=== PATIENT | female | born 1940 | race Caucasian/White ===

== ENCOUNTER 2018-08-27 08:27 | Observation (INO) ==
[2018-08-27] MEDS ORDERED: ceFAZolin 1 GM Premix Inj 1 GM/50 ML PIGGYBACK IV.SIG SCH (09:15)
[2018-08-27] MEDS ORDERED: Chlorhexidine Gluconate 2% 1 Pack (2 Cloths) TOPICAL ONE (09:15)
[2018-08-27] MEDS ORDERED: Metoprolol Tartrate 25 MG Tablet PO ONE (09:15)
[2018-08-27] MEDS ORDERED: Heparin - SQ 10,000 UNITS/ML Vial SQ SCH (09:15)
[2018-08-27] MEDS ORDERED: Sodium Chlor 0.9% Inj 500 ML IV.SIG SCH (10:00)
[2018-08-27] MEDS ORDERED: Scopalamine 1.5 MG Patch T-DERMAL ONE (11:00)
[2018-08-27] MEDS ORDERED: Sugammadex Inj 200 MG/2 ML Vial IV.PUSH ONE (11:49)
[2018-08-27] MEDS ORDERED: Famotidine PF Inj 20 MG/2 ML Vial ONE (11:49)
[2018-08-27] MEDS ORDERED: Lidocaine 1%/Epinephrine 1:100,000 Inj 30 ML Vial ONE (12:03)
[2018-08-27] MEDS ORDERED: Methylene Blue Inj 100 MG/10 ML Vial OTHER ONE (15:39)
[2018-08-27] MEDS ORDERED: LORazepam 0.5 MG Tablet PO PRN (16:45)
[2018-08-27] MEDS ORDERED: KCL 20 mEq/D5W/NaCl 0.45% Inj 1,000 ML IV.CONT SCH (16:45)
[2018-08-27] MEDS ORDERED: KCL 20 mEq/D5W/NaCl 0.45% Inj 1,000 ML ONE (17:02)
[2018-08-27] MEDS ORDERED: fentaNYL Citrate Inj 100 MCG/2 ML Ampul ONE (17:11)
[2018-08-27] MEDS ORDERED: *morphine SULFATE 4 MG/ML PERIprocedure ONLY ONE (17:31)
[2018-08-27] MEDS: Ketorolac Inj 30 MG/ML (IVP) Vial IV.PUSH SCH ×2 (17:33→23:53)
[2018-08-27] MEDS: KCL 20 mEq/D5W/NaCl 0.45% Inj 1,000 ML IV.CONT SCH (17:33)
--- NOTE | 2018-08-27 20:19 | MP ---
cc: Dunia Montoya MD, Heather MD Riga,Tyrone DICKERSON DATE OF OPERATION: 08/27/2018 PREOPERATIVE DIAGNOSES: 1. Complex pelvic mass (or masses). 2. Pain with suspicion of possible ovarian torsion. POSTOPERATIVE DIAGNOSES: 1. Bilateral complex adnexal masses. 2. Right ovarian torsion with necrosis. 3. Extensive intra-abdominal, intraperitoneal and pelvic adhesions. PROCEDURE PERFORMED: 1. Laparoscopy with extensive lysis of adhesions. 2. Robotic-assisted laparoscopic hysterectomy with bilateral salpingo-oophorectomy (with resection of bilateral ovarian masses). 3. Lysis of adhesions. SURGEON: Dunia Montoya MD NEEDLE CONTROL CHENILLER: Cleo trust administrative assistant. ANESTHESIA: General endotracheal anesthesia. ESTIMATED BLOOD LOSS: 100 mL. INTRAVENOUS FLUIDS: 1700 mL. URINE OUTPUT: 150 mL. HISTORY: A 78-year-old female who presented to the emergency room in [place] last week with the fairly acute onset of abdominopelvic pain and found on exam and imaging to have a large complex pelvic mass or the possibility of bilateral masses thought to be involving the ovaries. She was given pain medication. She had symptomatic improvement and was referred to us. She we saw her in our office 2 days ago where the findings were reviewed. At that time, she was uncomfortable, but not acute and felt improved compared to when she was in the emergency room, although she had been taking pain medication that may have been suppressing her symptoms. We reviewed the findings and the recommendation for surgery. She was in favor of a hysterectomy irrespective of the pathology of the ovaries or other findings. She was seen again in the preop holding area with her where the findings and plan of care were again discussed and reviewed. She expressed good understanding and agreed to move forward with surgery. FINDINGS: Upon laparoscopic entry into the peritoneal cavity, the omentum was densely adherent to the anterior abdominal wall, as was the transverse colon. The omentum was stuck to the abdominal wall down toward the pelvis as well. The etiology of the adhesions is unclear. In the pelvis, the left ovary was enlarged to approximately 6-7 cm, multilobulate and complex. The right ovary was estimated to be more like maybe 10-11 cm. It was clearly torsed. There was 180-degree torsion visible on the gonadal vessels. There was venous blood trapped in the mass. It was dark and appeared partially necrotic. It had some adhesions to the posterior cul-de-sac. The uterus itself appeared normal. The peritoneal surfaces appeared normal, other than extensive adhesions. The liver and diaphragm edges were smooth. The large and small bowel and adjacent mesentery were normal without obvious implants. There was no significant adenopathy. 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 The uterus grossly appeared normal. The right ovary showed no obvious malignancy. It was difficult to read due to the necrosis and inflammation. There were some atypical cells, raising the possibility of a borderline ovarian tumor. It is also possible that this impression is being derived from the necrosis and inflammation. STATEMENT OF COMPLEXITY/MODIFIER: It is estimated that an additional 1 hour of surgical time was required to lyse adhesions laparoscopically to gain safe entry into the peritoneal cavity and restore normal anatomy as well as lysing adhesions, mobilizing the colon and freeing the right ovary from the cul-de-sac to restore normal anatomy and to accomplish surgical objectives. Modifier should be applied accordingly. DESCRIPTION OF PROCEDURE: She was taken to the operating room and placed in dorsal lithotomy position. After general endotracheal anesthesia was administered, a timeout was undertaken. She was identified by sight recognition and hospital ID bracelet and the proposed procedure was reviewed and confirmed. She was carefully positioned in padded Lucas stirrups and her arms were padded and secured to the sides. She was further secured to the operating table with egg crate padding and tape in a cross chest over the shoulder fashion. All sites were noted to be properly aligned with no malalignment or pressure points. She was prepped in sterile fashion, draped below the waist and placed in lithotomy position. The cervix was grasped, the uterine cavity sounded, cervix dilated and a standard VCare manipulator was inserted and secured in usual fashion. A Bowling catheter was placed in the bladder. She was returned to low lithotomy position. A change of sterile gloves undertaken. We completed draping in anticipation of laparoscopy and confirmed that an orogastric tube was in the stomach on suction. For manual elevation of the abdominal wall, a 5 mm cannula was introduced into the left upper quadrant. Carbon dioxide gas was insufflated and visualization revealed extensive adhesions. A safe window of entry in the left lateral abdomen was noted and an 8 mm cannula was introduced. Using these accessory ports, a camera and blunt dissection were used to take down adhesions, followed by sharp dissection and focal cautery in a stepwise fashion until all of the adhesions from the omentum and the transverse colon were taken down from the anterior abdominal wall. Small bleeders were rendered hemostatic with bipolar cautery. A 12 mm cannula was placed in the midline above the umbilicus, 8 mm cannula placed in the right upper quadrant and the original 5 mm exchanged for an 8 mm cannula. She was placed in Trendelenburg position. Peritoneal washings were obtained for cytology. The anatomy was explored with findings as described above. The small bowel was folded back on its mesenteric root and 3 Ray-Елена sponges were placed around the root of the small bowel mesentery. The robotic system was brought into the operative field and attached in the usual fashion. Monopolar scissors, fenestrated bipolar forceps and ProGrasp manipulators were placed in arms #1, 2 and 3 respectively and I took my place at the surgeon's console. The right round ligament was isolated, cauterized, transected. The anterior and posterior leaves of the broad ligament were opened. The right ureter was identified. The right infundibulopelvic ligament was isolated to the level of the pelvic brim. The intervening peritoneum was opened and the infundibulopelvic ligament was cauterized thoroughly and transected. The right utero-ovarian ligament was isolated with sharp dissection and cautery and the posterior peritoneum opened along the right side of the uterus and cervix. The right uterine vessels were skeletonized and the right vesicouterine peritoneum was taken down off the lower uterine segment and cervix. Adhesions from the right ovarian mass were taken down from the cul-de-sac and sidewall so that now that the torsed necrotic mass could be elevated attached only by the utero-ovarian ligament. The utero-ovarian ligament was cauterized and transected and the mass was placed in the cul-de-sac for later retrieval. The right uterine vessels were further skeletonized, cauterized and transected, as were the cardinal, paracervical and uterosacral ligaments, thereby freeing the attachments along the right side of the uterus and cervix. Attention was directed toward the left side where the left round ligament was isolated, cauterized and transected. The anterior and posterior leaves of the broad ligament were opened. The left ureter was identified. The left infundibulopelvic ligament was isolated. The intervening peritoneum was opened. The infundibulopelvic ligament was further dissected free by taking down adhesions from the colon against the left pelvic sidewall. The gonadal vessels were isolated to the level of the pelvic brim where they were cauterized and transected. The posterior peritoneum was opened along the right side of the uterus and cervix. The uterine vessels were skeletonized and the left vesicouterine peritoneum was dissected off the lower uterine segment and cervix. Further dissection allowed isolation of the left utero-ovarian ligament, which was the only remaining attachment to the left mass. The utero-ovarian ligament was cauterized and transected and the mass was placed in the cul-de-sac for later retrieval. The left uterine vessels were now cauterized and transected, as were the cardinal, paracervical and uterosacral ligaments, thereby freeing the attachments along the left side of the uterus and cervix. A circumferential colpotomy was performed, the cervix from the upper vagina. The specimen was withdrawn transvaginally, which included the uterus and cervix, and the pneumo-occluder balloon was placed in the vagina to maintain pneumoperitoneum. A 12 cm EndoCatch bag was introduced transvaginally where the left tube and ovary were introduced and they were brought out and delivered transvaginally. Next, a 15 cm EndoCatch bag was introduced and the large torsed necrotic right ovarian mass was placed in the bag. The cystic component was drained, which helped reduce the size and allow eventual transvaginal delivery of the specimen. All specimens were sent for frozen section analysis with the visual findings as described above. Instruments 1 and 3 were exchanged for a needle power screwdriver operator as a 0 Vicryl suture was introduced. The vaginal cuff was closed with a 0 Vicryl starting at the left corner, full-thickness closure through the posterior peritoneum and edge of the uterosacral ligament and tied via instrument tie. The closure was held on countertraction as a running continuous full-thickness closure was carried across the apex to the contralateral corner where it was similarly fixed, secured and tied. The needle was cut and removed. The pelvis was thoroughly irrigated. The bladder integrity was checked by filling the bladder with saline dyed with methylene blue. The bladder filled nicely. Under pressure, there were no weak spots, no thinning, certainly no extravasation of dye. There was a good margin between the bladder edge and the vaginal cuff suture line, good peristalsis of the ureters and the bladder was drained. The pelvis was irrigated again. All sites hemostatic. In the absence of any malignancy and the uncertainty even regarding the borderline tumor plus normal anatomy otherwise, it was felt that all reasonable surgical objectives had been completed. The robotic instruments were removed. The robotic system was disengaged from the operative field. I reentered the bedside under sterile condition. Each of the 3 Ray-Елена sponges that had been placed in the peritoneal cavity were removed. Each were removed individually through the 12 mm cannula. They were inspected and noted to be removed in their entirety. The 12 mm fascial defect was closed with interrupted 0 Vicryl sutures using a needle fascial closure apparatus. They were tied securely, which rendered the fascia completely airtight and hemostatic. The remaining cannulas were withdrawn. Carbon dioxide gas was removed. 3-0 Vicryl subcutaneous, 3-0 Vicryl subcuticular and Steri-Strips were used to close these incisions. She was returned to dorsal lithotomy position. Pelvic exam confirmed that the vaginal cuff was well supported and hemostatic, there were no vaginal lacerations and no remaining foreign objects in the vagina. Preliminary and final counts were correct. She was returned to dorsal supine position and was pending reversal of anesthesia when I left the operating room to precede her to the postanesthesia care unit. MD BECKI Barnhart/shawna , 05:04 PM , 05:26 PM
[2018-08-28] MEDS: KCL 20 mEq/D5W/NaCl 0.45% Inj 1,000 ML IV.CONT SCH (03:11)
[2018-08-28] MEDS: Ketorolac Inj 30 MG/ML (IVP) Vial IV.PUSH SCH (05:39)
[2018-08-28 06:26] LABS: Baso % (Auto) 0.1 % (0.0-2.0); Hematocrit 35.5 % (35.0-46.0); Hemoglobin 12.4 gm/dL (11.6-15.3); Lymph # (Auto) 0.8 th/mm3 (1.0-4.8); Lymph % (Auto) 8.3 % (9.0-44.0); Mean Corpuscular HGB Conc 34.8 % (32.0-36.0); Mean Corpuscular Hemoglobin 33.6 pg (27.0-34.0); Mean Corpuscular Volume 96.5 fL (80.0-100.0); Mean Platelet Volume 8.5 fL (7.0-11.0); Mono # (Auto) 0.8 th/mm3 (0.0-0.9); Mono % (Auto) 7.9 % (0.0-8.0); Neut # (Auto) 8.2 th/mm3 (1.8-7.7); Neut % (Auto) 83.7 % (16.0-70.0); Platelet Count 200 th/mm3 (150-450); Red Blood Count 3.68 mil/mm3 (4.00-5.30); Red Cell Distribution Width 12.7 % (11.6-17.2); White Blood Count 9.8 th/mm3 (4.0-11.0)
[2018-08-28 06:43] LABS: Carbon Dioxide 29.2 meq/L (21.0-32.0); Potassium 4.2 meq/L (3.5-5.1)
[2018-08-28 08:43] VITALS: BP 119/68; PULSE 69; RESP 16; TEMP 98.8; O2SAT 95
--- NOTE | 2018-08-28 10:29 | MD ---
cc: Dunia Montoya MD, Heather Riga, Peter DATE OF DISCHARGE: 08/28/2018 PROCEDURE: On 08/27/2018, laparoscopy with extensive lysis of adhesions, robotic-assisted laparoscopic hysterectomy, bilateral salpingo-oophorectomy (with resection of bilateral adnexal masses including a torsed necrotic right ovarian mass). HOSPITAL COURSE: She did well in her early postoperative period, was hemodynamically stable, tolerated oral intake. Bowling catheter removed pending voiding. Ins and outs 3660/1650. Labs this morning show an H and H of 12.4 and 35.5. Electrolytes: Potassium 4.2, BUN and creatinine 10 and 0.78. PHYSICAL EXAMINATION: VITAL SIGNS: She is afebrile, pulse 75-82, respirations 18, blood pressure 107-148/64-76, O2 saturations greater than or equal to 98%. GENERAL: Alert and oriented x 3. LUNGS: Clear. Mild basilar rales. CARDIOVASCULAR: Regular rate and rhythm. ABDOMEN: Incision is clean and dry. GYNECOLOGIC: No bleeding. EXTREMITIES: Nontender. ASSESSMENT: Postoperative day number 1, doing well in the early postoperative period. Steps taken, findings at the time of surgery, and preliminary pathology are reviewed. Activities and restrictions are again discussed. Questions were asked and answered. She expressed good understanding and agreed. PLAN: I anticipate she will meet criteria for discharge to home today. She is to contact our office to schedule a followup in 1-2 weeks or to call our office between now and then should she have any questions or problems. She is to resume prior medication. She will have a prescription for Percocet for pain. MD BECKI Barnhart/yuly , 07:46 AM , 07:51 AM
== END 2018-08-28 10:30 | disposition home or self-care (01) ==
LOC: HSDI 08:27 → HSDC 08:27 → HCIN 18:20
PROVIDERS: ADMIT Obstetrics & Gynecology Gynecologic Oncology; ATTEND Obstetrics & Gynecology Gynecologic Oncology